=== PATIENT | female | born 1950 | race Caucasian/White ===

== ENCOUNTER 2017-07-31 10:53 | Emergency (ER) | payer MEDICARE, OTHER ==
[2017-07-31 11:11] VITALS: BP 149/99; PULSE 89; RESP 16; TEMP 96.7; O2SAT 99
--- NOTE | 2017-07-31 13:27 | ED PDOC ---
HPI: General Adult Time Seen by Provider: 07/31/17 12:27 Chief Complaint (Nursing): Abnormal Skin Integrity Chief Complaint (Provider): Swelling to face History Per: Patient History/Exam Limitations: no limitations Onset/Duration Of Symptoms: Hrs Have you had recent travel within the past 21 days to any of the following countries: [place], [place], [place] or [place]?: No Current Symptoms Are (Timing): Still Present Additional History Per: Patient Additional Complaint(s): 67yo female presents to ED for evaluation of swelling to right cheek by her lip which she noticed when she woke up. Patient states she had some discomfort in her right upper tooth a couple days ago but she did not follow up with a dentist. She denies any fever, chills, headache, URI symptoms, sore throat or rash. No other complaints. Past Medical History Reviewed: Historical Data, Nursing Documentation, Vital Signs Vital Signs: Last Vital Signs Temp 96.7 F L 07/31/17 11:09 Pulse 89 07/31/17 11:09 Resp 16 07/31/17 11:09 BP 149/99 H 07/31/17 11:09 Pulse Ox 99 07/31/17 13:34 - Medical History PMH: Denies: Chronic Kidney Disease - Surgical History Surgical History: No Surg Hx - Family History Family History: States: No Known Family Hx - Home Medications Home Medications: Ambulatory Orders Medication Instructions Recorded Aspirin [Aspirin Chewable] 81 mg PO DAILY #0 chew 02/18/15 Metoprolol Tartrate [Lopressor] 25 mg PO Q12@0600,1800 #0 tab 02/18/15 Clindamycin [Cleocin] 300 mg PO TID #21 cap 07/31/17 - Allergies Allergies/Adverse Reactions: Allergies Allergy/AdvReac Type Severity Reaction Status Date / Time No Known Allergies Allergy Verified 02/17/15 12:31 Review of Systems ROS Statement: Except As Marked, All Systems Reviewed And Found Negative Constitutional: Negative for: Fever, Chills ENT: Positive for: Other (swelling to right cheek by upper lip). Negative for: Throat Pain Skin: Negative for: Rash Physical Exam - Reviewed Nursing Documentation Reviewed: Yes Vital Signs Reviewed: Yes - Physical Exam Appears: Positive for: Non-toxic, No Acute Distress Head Exam: Positive for: ATRAUMATIC, NORMAL INSPECTION, NORMOCEPHALIC Skin: Positive for: Normal Color, Warm, Dry Eye Exam: Positive for: EOMI, PERRL ENT: Positive for: Normal ENT Inspection, Other (edema noted to right side of cheek by lip.). Negative for: Pharyngeal Erythema, Tonsillar Exudate, Tonsillar Swelling Neck: Positive for: Supple Cardiovascular/Chest: Positive for: Regular Rate, Rhythm Respiratory: Positive for: Normal Breath Sounds. Negative for: Respiratory Distress Lymphatic: Positive for: Adenopathy (non-tender right cervical lymphadenopathy) Neurologic/Psych: Positive for: Alert, Oriented. Negative for: Motor/Sensory Deficits - ECG O2 Sat by Pulse Oximetry: 99 (RA) Pulse Ox Interpretation: Normal Medical Decision Making Medical Decision Making: Impression: Right sided facial swelling Plan: -- Cleocin 300mg PO -- TDAP booster Time: 1333 Based on history and exam, plan will be for discharge with instructions for follow up with PCP. Advised to follow up with the dentist in 1-2 days without fail. Advised to take medication as prescribed. Return to the emergency room at any time for any new or worsening symptoms. Patient states she fully agrees with and understands discharge instructions. States that she agrees with the plan and disposition. Verbalized and repeated discharge instructions and plan. I have given the patient opportunity to ask any additional questions. Scribe Attestation: Documented by Sierra Austin acting as a scribe for SHANE Shahid Provider Attestation: All medical record entries made by the Scribe were at my direction and personally dictated by me. I have reviewed the chart and agree that the record accurately reflects my personal performance of the history, physical exam, medical decision making, and the department course for this patient. I have also personally directed, reviewed, and agree with the discharge instructions and disposition. Disposition - Clinical Impression Clinical Impression: Dental abscess, Facial swelling - Patient ED Disposition Is Patient to be Admitted: No Counseled Patient/Family Regarding: Diagnosis, Need For Followup, Rx Given - Disposition Referrals: Ty Rangel [facility] [Outside] Disposition: Routine/Home Disposition Time: 12:40 Condition: STABLE Additional Instructions: Follow up with a dentist in 2 days, take medication as prescribed. Return to the ER at any time for any new or worsening symptoms. 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
== END 2017-07-31 13:31 | disposition home or self-care (01) ==
LOC: H.ER 10:53
DX: K04.7 Periapical abscess without sinus (principal); Z79.82 Long term (current) use of aspirin

== ENCOUNTER 2017-09-27 09:08 | Day surgery (SDC) | payer MEDICARE ==
[2017-09-27 10:57] VITALS: BMI 18.6
[2017-09-27 11:08] VITALS: TEMP 97
[2017-09-27] MEDS ORDERED: Lactated Ringer's 500 ML IV ONE (11:08)
[2017-09-27] MEDS ORDERED: Lidocaine PF 2% (5 ml) Inj (For Cardiac Arrhy) IV ONE (11:32)
[2017-09-27] MEDS ORDERED: Propofol 10 mg/ml Inj (20 ML) ONE (11:32)
[2017-09-27 12:03] VITALS: O2SAT 100
[2017-09-27 12:14] VITALS: BP 117/83; PULSE 81; RESP 16
== END 2017-09-27 13:23 | disposition home or self-care (01) ==
LOC: H.ENDO 09:08
PROVIDERS: ATTEND Internal Medicine Gastroenterology
DX: Z12.11 Encounter for screening for malignant neoplasm of colon (principal); F17.210 Nicotine dependence, cigarettes, uncomplicated; K57.30 Diverticulosis of large intestine without perforation or abscess without bleeding; K64.8 Other hemorrhoids
CPT/HCPCS: 45380; 88305; J2704; J7120